=== PATIENT | female | born 1975 | race Caucasian/White ===

== ENCOUNTER 2018-07-31 16:46 | Emergency (ER) | payer SELFPAY ==
[~2018-07-31] VITALS: Ht 157.5 cm; Wt 120.2 kg
[2018-07-31] MEDS ORDERED: NS IV 1000 ML 1,000 ML IV STA (17:09)
[2018-07-31] MEDS ORDERED: morphine INJ 10 MG/ML 1ML (SYR OR VIAL) IVP STA (17:09)
[2018-07-31] MEDS ORDERED: ONDANSETRON 4 MG/2 ML (SDV) Z0FRAN IVP ONE (17:15)
--- NOTE | 2018-07-31 17:24 | ED Abdominal Pain ---
General Chief Complaint: Abdominal/GI Problems Stated Complaint: ABD PAIN Nursing Triage Note: Patient reports she has had bilateral lower quadrant abdominal pain for 8-9 days. States she was seen by her PCP in [place] and tentatively diagnosed with kidney stones. She then left to go on a 7 day cruise, states her pain has worsened and moved to her RLQ, reports nausea and vomiting for 3 days. She states she initially had diarrhea, now some mild constipation. Sepsis Screen: No Definite Risk (MONISHA KING MD) History of Present Illness Date Seen by Provider: Jul 31, 2018 Time Seen by Provider: 17:00 Initial Comments The patient is a 43-year-old female with a history of chronic left shoulder pain on hydrocodone and tizanidine, as well as prior nephrolithiasis, and with a surgical history of prior cholecystectomy and total hysterectomy. She presents with concern for acute onset of right lower quadrant > suprapubic abdominal discomfort with onset over the past 3 days. Pain is sharp and constant and rather severe and the patient appears to be in some discomfort upon initial evaluation. Pain is nonradiating and it is better with rest and worse with ambulation. Associated nausea with 3 episodes of nonbloody emesis over the last 3 days. Associated mild constipation with bowel movements which are small and hard over the last 3 days. Subjective fevers at home yesterday although is afebrile here. Symptoms occur in the setting of nearly 2 weeks of what is described as left lower quadrant abdominal pain which was more mild and intermittent in character. Patient saw her primary care physician for this issue 2 weeks ago and was evidently diagnosed with a urinary tract infection and placed on Keflex. She then went on a cruise to the [facility] and states that she was having loose bowel movements for most of the cruise in the setting of Keflex utilization. She states she mostly ate food that was provided on the cruise ship and did not really eat local cuisine at the [place] call she visited. She states that over the last 3 days she has been taking her home hydrocodone every day for relief of her right lower quadrant abdominal pain. No associated hematemesis, hematochezia, melena, cough, shortness of breath or chest pain, upper abdominal pain, flank pain, back pain, dysuria or hematuria, unusual vaginal discharge or bleeding. (MONISHA KING MD) Allergies and Home Medications Allergies Coded Allergies: Penicillins (Verified Allergy, Unknown, 07/31/18) ketorolac (Verified Allergy, Unknown, 07/31/18) Uncoded Allergies: IV CONTRAST DYE (Allergy, Unknown, 07/31/18) Home Medications Hydromorphone HCl 2 Mg Tablet, 2 MG PO TID PRN for PAIN-SEVERE Abdominal pain Prescribed by: AURELIA PEOPLESRT on 07/31/182224 Promethazine HCl 25 Mg Tablet, 25 MG PO Q6H PRN for NAUSEA/VOMITING Prescribed by: AURELIA RANDHAWA on 07/31/182224 Patient Home Medication List Home Medication List Reviewed: Yes (MONISHA KING MD) Review of Systems Review of Systems Constitutional: see HPI (MONISHA KING MD) All Other Systems Reviewed Negative Unless Noted: Yes (MONISHA KING MD) Past Injfngp-Qwofkr-Wajcio Hx Past Med/Social Hx: Reviewed Nursing Past Med/Soc Hx (MONISHA KING MD) Patient Social History Recent Foreign Travel: Yes (recently on a cruise in the [place]) Contact w/Someone Who Travel: Yes Recent Infectious Disease Expo: No (MONISHA KING MD) Past Medical History BI ARCHITECT History: Hysterectomy (MONISHA KING MD) Family Medical History Reviewed Nursing Family Hx (MONISHA KING MD) Physical Exam Vital Signs Vital Signs - First Documented 07/31/18 17:00 Temp 98.4 Pulse 88 Resp 20 B/P (MAP) 161/93 (115) Pulse Ox 98 O2 Delivery Room Air (AURELIA RANDHAWA MD) Vital Signs Capillary Refill : Less Than 3 Seconds (MONISHA KING MD) Height/Weight/BMI Height: 5'2.00" Weight: 265lbs. oz. 120.783343yq; BMI Method:Stated General Appearance: no apparent distress Exam Comments This is a middle-aged female appearing nontoxic and in no acute distress. Head is normocephalic and atraumatic. Neck is supple and nontender. Oropharynx is mildly tacky. Lungs are clear to auscultation at all stations. There is a normal S1 and S2 without rubs or gallops and capillary refills dylan ropriate, less 2 seconds globally. Abdomen is soft and nondistended and with mild tenderness to palpation over the right lower quadrant and less so over the suprapubic region without rebound or guarding. Skin is warm and dry without cyanosis, clubbing or edema. Psychiatrically, the patient demonstrates appropriate mood and affect and is alert. (MONISHA KING MD) Progress/Results/Core Measures Results/Orders Lab Results Laboratory Tests Test 07/31/18 17:32 07/31/18 18:00 Range/Units White Blood Count 5.9 4.3-11.0 10^3/uL Red Blood Count 4.77 4.35-5.85 10^6/uL Hemoglobin 14.0 11.5-16.0 G/DL Hematocrit 42 35-52 % Mean Corpuscular Volume 89 80-99 FL Mean Corpuscular Hemoglobin 29 25-34 PG Mean Corpuscular Hemoglobin Concent 33 32-36 G/DL Red Cell Distribution Width 13.7 10.0-14.5 % Platelet Count 128 L 130-400 10^3/uL Mean Platelet Volume 11.1 H 7.4-10.4 FL Neutrophils (%) (Auto) 55 42-75 % Lymphocytes (%) (Auto) 37 12-44 % Monocytes (%) (Auto) 6 0-12 % Eosinophils (%) (Auto) 2 0-10 % Basophils (%) (Auto) 0 0-10 % Neutrophils # (Auto) 3.3 1.8-7.8 X 10^3 Lymphocytes # (Auto) 2.2 1.0-4.0 X 10^3 Monocytes # (Auto) 0.4 0.0-1.0 X 10^3 Eosinophils # (Auto) 0.1 0.0-0.3 10^3/uL Basophils # (Auto) 0.0 0.0-0.1 10^3/uL Sodium Level 141 135-145 MMOL/L Potassium Level 4.0 3.6-5.0 MMOL/L Chloride Level 104 98-107 MMOL/L Carbon Dioxide Level 28 21-32 MMOL/L Anion Gap 9 5-14 MMOL/L Blood Urea Nitrogen 10 7-18 MG/DL Creatinine 0.64 0.60-1.30 MG/DL Estimat Glomerular Filtration Rate > 60 BUN/Creatinine Ratio 16 Glucose Level 170 H 70-105 MG/DL Calcium Level 9.2 8.5-10.1 MG/DL Corrected Calcium 9.5 8.5-10.1 MG/DL Total Bilirubin 0.7 0.1-1.0 MG/DL Aspartate Amino Transf (AST/SGOT) 74 H 5-34 U/L Alanine Aminotransferase (ALT/SGPT) 65 H 0-55 U/L Alkaline Phosphatase 130 40-136 U/L Total Protein 7.0 6.4-8.2 GM/DL Albumin 3.6 3.2-4.5 GM/DL Lipase 34 8-78 U/L Urine Color YELLOW Urine Clarity CLEAR Urine pH 7.0 5-9 Urine Specific [place] 1.015 L 1.016-1.022 Urine Protein NEGATIVE NEGATIVE Urine Glucose (UA) NEGATIVE NEGATIVE Urine Ketones NEGATIVE NEGATIVE Urine Nitrite NEGATIVE NEGATIVE Urine Bilirubin NEGATIVE NEGATIVE Urine Urobilinogen 1.0 NORMAL MG/DL Urine Leukocyte Esterase NEGATIVE NEGATIVE Urine RBC (Auto) NEGATIVE NEGATIVE Urine RBC NONE /HPF Urine WBC 0-2 /HPF Urine Squamous Epithelial Cells 5-10 /HPF Urine Crystals NONE /LPF Urine Bacteria TRACE /HPF Urine Casts NONE /LPF Urine Mucus NONE /LPF Urine Trichomonas /HPF Urine Culture Indicated NO (AURELIA RANDHAWA MD) My Orders Orders - AURELIA RANDHAWA MD Hydromorphone Injection (Dilaudid Inject (07/31/18 20:43) Promethazine Injection (Phenergan Injec (07/31/18 20:43) (AURELIA RANDHAWA MD) Medications Given in ED Current Medications Medications Dose Ordered Sig/Karl Route Start Time Stop Time Status Last Admin Dose Admin Diphenhydramine HCl 50 mg ONCE ONCE IVP 07/31/18 18:00 07/31/18 18:01 DC 07/31/18 18:05 50 MG Hydromorphone HCl 1 mg ONCE ONCE IV 07/31/18 18:15 07/31/18 18:16 DC 07/31/18 18:29 1 MG Iohexol 100 ml ONCE ONCE IV 07/31/18 17:30 07/31/18 17:31 DC 07/31/18 19:02 100 ML Methylprednisolone Sodium Succinate 125 mg ONCE ONCE IM 07/31/18 18:00 07/31/18 18:01 DC 07/31/18 18:05 125 MG Ondansetron HCl 4 mg ONCE ONCE IVP 07/31/18 17:15 07/31/18 17:16 DC 07/31/18 17:31 4 MG Sodium Chloride 10 ml NEEDED PRN IV 07/31/18 17:30 07/31/18 22:38 DC 07/31/18 19:04 10 ML Sodium Chloride 100 ml ONCE ONCE IV 07/31/18 17:30 07/31/18 17:31 DC 07/31/18 19:02 100 ML (AURELIA RANDHAWA MD) Vital Signs/I&O 07/31/18 07/31/18 17:00 22:32 Temp 98.4 98.2 Pulse 88 88 Resp 20 18 B/P (MAP) 161/93 (115) 145/61 (89) Pulse Ox 98 99 O2 Delivery Room Air Room Air 08/01/18 00:00 Intake Total 1000 ml Balance 1000 ml (AURELIA RANDHAWA MD) Blood Pressure Mean: 115 Progress Progress Note : Time: 17:25 Progress Note 43-year-old female who presents with 2 weeks of lower quadrant abdominal pain, initially left sided and with some reported evidence of urinary tract infection per testing completed at her physician's office and previously placed on Keflex, then with diarrhea while traveling outside the country and on Keflex, and now with constipation and right lower quadrant abdominal pain after initiating her home hydrocodone daily for her belly pain. There are some red flags for bacterial enteritis so we will attempt to obtain a stool sample so that stool studies can be sent. We will check labs, urinalysis and urine culture if appropriate, give IV fluids and obtain a contrasted CT scan of the abdomen and pelvis. We will then reevaluate. (MONISHA KING MD) Progress Note #1: Progress Note I assumed care of the patient from dr. King at shift change. Pt was waiting on CT results. Labs all looked ok and urine clear without signs of infection. Progress Note #2: Time: 19:44 Progress Note Patient's had already received several doses of pain medicine including Dilaudid. She was requesting something more for pain. Her CT scan had come back finally stating that there was nothing acute today For her pain symptoms. On my review of her CT she had mild increase in gas and stool. There is no definite signs of appendicitis. She had no inflammatory changes. Will see about trying Bentyl for pain and cramping and have her follow-up through the clinic. Will add in laxative for constipation. Progress Note #3: Progress Note When reviewing the results with the patient and discussing Ventolin other options she is became tearful and so the Bentyl has not helped with her pain in the past. She also was having a lot of nausea. Will try a dose of Phenergan instead for nausea. Will repeat a dose of Dilaudid for her pain. We will discuss with the on-call surgeon to see about the recommendation and if she might qualify for admit. When discussed with Dr. Morgan he advised that if we can control her pain to discharge her on oral pain medication and have her call the clinic and he would help see her and see about setting her up for a colonoscopy. Since the patient states that she is concerned about possible ulcerative colitis or Crohn's she would need a scope to help control that out. In the meantime we will try treating her pain with Dilaudid and nausea with Phenergan. Counseled on follow- up and return precautions if she gets worse. (AURELIA RANDHAWA MD) Diagnostic Imaging Diagonstic Imaging: CT Plain Films/CT/US/NM/MRI: abdomen, pelvis Comments NAME: [facility] REC#: [id number] PT STATUS: REG ER : 1975 PHYSICIAN: MONISHA KING MD ADMIT DATE: 07/31/18/ER FS Draft Date of Exam:07/31/18 CT ABDOMEN/PELVIS W PROCEDURE: CT abdomen and pelvis with contrast. TECHNIQUE: Multiple contiguous axial images were obtained through the abdomen and pelvis after administration of intravenous contrast. Auto Exposure Controls were utilized during the CT exam to meet ALARA standards for radiation dose reduction. INDICATION: Abdominal pain with nausea and vomiting. Diarrhea. FINDINGS: The lung bases are clear. The liver appears normal. Gallbladder is absent. Bile ducts and pancreas are normal. The spleen is normal. The adrenal glands are normal. The kidneys appear normal. There is normal enhancement of the abdominal organs and vessels following IV contrast. Vessels appear normal. The appendix is visualized and normal. Small bowel is not dilated. No evidence of small bowel wall thickening. The colon shows normal stool and gas pattern. No evidence of constipation. There are no focal changes to indicate diverticulitis. No bowel wall thickening to suggest colitis. There is a question of asymmetrical thickening along the rectal wall on the left. This may be due to peristaltic change though a rectal mass could not be excluded from this exam. Pararectal tissues appear normal without evidence of adenopathy. Uterus is absent. Bladder normal. No bony abnormalities. IMPRESSION: 1. There are no acute abnormalities demonstrated. 2. Question of possible thickening of the rectal wall mid level laterally on the left. This may be due to peristaltic change. Clinical correlation. Dictated on workstation # [id number] Dict: 07/31/181941 Trans: 07/31/181947 [facility] [id number] Interpreted by: MITZI DEITZ MD Electronically signed by: (AURELIA RANDHAWA MD) Departure Impression Primary Impression: Right lower quadrant abdominal pain Additional Impression: Nausea and vomiting Qualified Codes: R11.14 - Bilious vomiting Disposition: 01 HOME, SELF-CARE Condition: Stable Departure-Patient Inst. Decision time for Depature: 22:19 (AURELIA RANDHAWA MD) Referrals: SEAN MORGAN MD Patient Instructions: Acute Abdomen (Belly Pain), Adult (DC), Nausea and Vomiting, Adult (DC) Add. Discharge Instructions: Check with Dr. Morgan with surgery at [facility] about setting up a Colonoscopy. his office number is [phone]. Try the Dilaudid (Hydromorphone) pain medicine instead of Hydrocodone and Phenergan for nausea. Try a liquid diet for the next 2-3 days and take a laxative to prevent Constipation while taking narcotic pain medicine. All discharge instructions reviewed with patient and/or family. Voiced understanding. Scripts Promethazine HCl (Promethazine Tablet) 25 Mg Tablet 25 MG PO Q6H PRN for NAUSEA/VOMITING for 5 Days, #20 TAB 0 Refills Prov: AURELIA RANDHAWA MD 07/31/18 Hydromorphone HCl (Dilaudid) 2 Mg Tablet 2 MG PO TID PRN for PAIN-SEVERE for 7 Days, #21 TAB 0 Refills Abdominal pain Prov: AURELIA RANDHAWA MD 07/31/18 Work/School Note: Work Release Form Date Seen in the Emergency Department: Jul 31, 2018 Return to Work: Aug 03, 2018 Restrictions: No Restrictions MONISHA KING MD Jul 31, 2018 17:23 AURELIA RANDHAWA MD Jul 31, 2018 19:53
[2018-07-31] MEDS ORDERED: HOLD METFORMIN - RECEIVED CONTRAST 20 ML VIAL IV SCH (17:30)
[2018-07-31] MEDS ORDERED: NS 100 ML (IVPB) BAG IV ONE (17:30)
[2018-07-31] MEDS ORDERED: CATHETER FLUSH 10 ML SYR IV PRN (17:30)
[2018-07-31] MEDS ORDERED: IOHEXOL 350 MG/ML 100 ML (OMNIPAQUE 350) VIAL IV ONE (17:30)
[2018-07-31 17:38] LABS: WHITE BLOOD COUNT 5.9 10^3/uL (4.3-11.0)
[2018-07-31 17:39] LABS: BASOPHILS % (AUTO) 0 % (0-10); EOSINOPHILS # (AUTO) 0.1 10^3/uL (0.0-0.3); EOSINOPHILS % (AUTO) 2 % (0-10); HEMATOCRIT 42 % (35-52); LYMPHOCYTES # (AUTO) 2.2 X 10^3 (1.0-4.0); LYMPHOCYTES % (AUTO) 37 % (12-44); MEAN CORPUSCULAR HEMOGLOBIN 29 PG (25-34); MEAN CORPUSCULAR HGB CONC 33 G/DL (32-36); MEAN CORPUSCULAR VOLUME 89 FL (80-99); MEAN PLATELET VOLUME 11.1 FL (7.4-10.4); MONOCYTES # (AUTO) 0.4 X 10^3 (0.0-1.0); MONOCYTES % (AUTO) 6 % (0-12); NEUTROPHILS # (AUTO) 3.3 X 10^3 (1.8-7.8); NEUTROPHILS % (AUTO) 55 % (42-75); PLATELET COUNT 128 10^3/uL (130-400); RED CELL DISTRIBUTION WIDTH 13.7 % (10.0-14.5)
[2018-07-31] MEDS ORDERED: methylPREDNISolone 125 MG (Solu-MEDROL) VIAL IM ONE (18:00)
[2018-07-31] MEDS ORDERED: diphenhydrAMINE 50 MG/ML INJ (BENADRYL) IVP ONE ×2 (18:00)
[2018-07-31 18:10] LABS: ALANINE AMINOTRANSFERASE 65 U/L (0-55); ALBUMIN 3.6 GM/DL (3.2-4.5); ALKALINE PHOSPHATASE 130 U/L (40-136); BILIRUBIN,TOTAL 0.7 MG/DL (0.1-1.0); BUN/CREATININE RATIO 16; CALCIUM 9.2 MG/DL (8.5-10.1); CARBON DIOXIDE 28 MMOL/L (21-32); CHLORIDE 104 MMOL/L (98-107); CREATININE SERUM 0.64 MG/DL (0.60-1.30); GFR ESTIMATED > 60; GLUCOSE 170 MG/DL (70-105); SODIUM 141 MMOL/L (135-145)
[2018-07-31 18:11] LABS: LIPASE 34 U/L (8-78)
[2018-07-31 18:14] LABS: COLOR,URINE YELLOW
[2018-07-31 18:15] LABS: BACTERIA,URINE TRACE /HPF; BILIRUBIN,URINE NEGATIVE (NEGATIVE); CLARITY,URINE CLEAR; GLUCOSE, URINE (UA) NEGATIVE (NEGATIVE); KETONES,URINE NEGATIVE (NEGATIVE); LEUKOCYTE ESTERASE ,URINE NEGATIVE (NEGATIVE); NITRITE,URINE NEGATIVE (NEGATIVE); PROTEIN,URINE NEGATIVE (NEGATIVE); WBC,URINE 0-2 /HPF
[2018-07-31] MEDS ORDERED: HYDROmorphone 2 MG/ML VIAL (DILAUDID) IV ONE (18:15)
--- NOTE | 2018-07-31 19:48 | Diagnostic Imaging Report ---
PROCEDURE: CT abdomen and pelvis with contrast. TECHNIQUE: Multiple contiguous axial images were obtained through the abdomen and pelvis after administration of intravenous contrast. Auto Exposure Controls were utilized during the CT exam to meet ALARA standards for radiation dose reduction. INDICATION: Abdominal pain with nausea and vomiting. Diarrhea. FINDINGS: The lung bases are clear. The liver appears normal. Gallbladder is absent. Bile ducts and pancreas are normal. The spleen is normal. The adrenal glands are normal. The kidneys appear normal. There is normal enhancement of the abdominal organs and vessels following IV contrast. Vessels appear normal. The appendix is visualized and normal. Small bowel is not dilated. No evidence of small bowel wall thickening. The colon shows normal stool and gas pattern. No evidence of constipation. There are no focal changes to indicate diverticulitis. No bowel wall thickening to suggest colitis. There is a question of asymmetrical thickening along the rectal wall on the left. This may be due to peristaltic change though a rectal mass could not be excluded from this exam. Pararectal tissues appear normal without evidence of adenopathy. Uterus is absent. Bladder normal. No bony abnormalities. IMPRESSION: 1. There are no acute abnormalities demonstrated. 2. Question of possible thickening of the rectal wall mid level laterally on the left. This may be due to peristaltic change. Clinical correlation. Dictated by: Dictated on workstation # [id number]
[2018-07-31] MEDS ORDERED: PROMETHAZINE INJ 25 MG/ML (PHENERGAN) AMP IVP STA (20:43)
[2018-07-31] MEDS ORDERED: HYDROmorphone 2 MG/ML VIAL (DILAUDID) IV STA (20:43)
[2018-07-31] MEDS ORDERED: PROM25TA14 PO (22:25)
[2018-07-31] MEDS ORDERED: HYDR2TAB30 PO (22:25)
[2018-07-31 22:32] VITALS: BP 145/61
== END 2018-07-31 22:32 | disposition home or self-care (01) ==
LOC: ER FS 16:49
DX: R10.31 Right lower quadrant pain (principal); R11.2 Nausea with vomiting, unspecified; Z90.49 Acquired absence of other specified parts of digestive tract; Z90.710 Acquired absence of both cervix and uterus; Z88.0 Allergy status to penicillin; Z88.4 Allergy status to anesthetic agent; Z91.041 Radiographic dye allergy status
CPT/HCPCS: 36415; 74177; 80053; 81000; 83690; 85025; 96361; 96372; 96374; 96375; 96376

== ENCOUNTER 2018-08-30 17:44 | Emergency (ER) | payer BC, OTHER ==
[~2018-08-30] VITALS: Ht 160 cm; Wt 117.9 kg
[~2018-08-30 17:44] MED LIST: HYDR2TAB30 PO; PROM25TA14 PO
--- NOTE | 2018-08-30 18:07 | ED Chest Pain ---
General Stated Complaint: CHEST PAIN, SOB, RT LEG SWELLING Source: patient, RN notes reviewed, old records Exam Limitations: no limitations History of Present Illness Date Seen by Provider: Aug 30, 2018 Time Seen by Provider: 18:07 Allergies and Home Medications Allergies Coded Allergies: Penicillins (Verified Allergy, Unknown, 07/31/18) ketorolac (Verified Allergy, Unknown, 07/31/18) Uncoded Allergies: IV CONTRAST DYE (Allergy, Unknown, 07/31/18) Home Medications Hydromorphone HCl 2 Mg Tablet, 2 MG PO TID PRN for PAIN-SEVERE Abdominal pain Prescribed by: AURELIA Martinez ENKEVINRT on 07/31/182224 Promethazine HCl 25 Mg Tablet, 25 MG PO Q6H PRN for NAUSEA/VOMITING Prescribed by: AURELIA Martinez ENYART on 07/31/182224 Past Dvfoepj-Ehygxy-Ncktzz Hx Patient Social History 2nd Hand Smoke Exposure: No Recent Foreign Travel: No Contact w/Someone Who Travel: No Recent Hopitalizations: No Seasonal Allergies Seasonal Allergies: No Past Medical History Surgeries: Yes Section, Gallbladder, Hysterectomy Respiratory: No Cardiac: No 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 oz. 120.862844ev; BMI Method:Stated Progress/Results/Core Measures Results/Orders Lab Results Laboratory Tests Test 08/30/18 18:12 08/30/18 20:20 Range/Units White Blood Count 7.6 4.3-11.0 10^3/uL Red Blood Count 4.89 4.35-5.85 10^6/uL Hemoglobin 14.3 11.5-16.0 G/DL Hematocrit 44 35-52 % Mean Corpuscular Volume 89 80-99 FL Mean Corpuscular Hemoglobin 29 25-34 PG Mean Corpuscular Hemoglobin Concent 33 32-36 G/DL Red Cell Distribution Width 13.2 10.0-14.5 % Platelet Count 126 L 130-400 10^3/uL Mean Platelet Volume 11.6 H 7.4-10.4 FL Neutrophils (%) (Auto) 57 42-75 % Lymphocytes (%) (Auto) 34 12-44 % Monocytes (%) (Auto) 7 0-12 % Eosinophils (%) (Auto) 1 0-10 % Basophils (%) (Auto) 0 0-10 % Neutrophils # (Auto) 4.3 1.8-7.8 X 10^3 Lymphocytes # (Auto) 2.5 1.0-4.0 X 10^3 Monocytes # (Auto) 0.6 0.0-1.0 X 10^3 Eosinophils # (Auto) 0.1 0.0-0.3 10^3/uL Basophils # (Auto) 0.0 0.0-0.1 10^3/uL Prothrombin Time 13.0 12.2-14.7 SEC INR Comment 0.9 0.8-1.4 Activated Partial Thromboplast Time 27 24-35 SEC D-Dimer 0.19 0.00-0.49 UG/ML Sodium Level 140 135-145 MMOL/L Potassium Level 4.1 3.6-5.0 MMOL/L Chloride Level 100 98-107 MMOL/L Carbon Dioxide Level 27 21-32 MMOL/L Anion Gap 13 5-14 MMOL/L Blood Urea Nitrogen 11 7-18 MG/DL Creatinine 0.68 0.60-1.30 MG/DL Estimat Glomerular Filtration Rate > 60 BUN/Creatinine Ratio 16 Glucose Level 178 H 70-105 MG/DL Calcium Level 9.1 8.5-10.1 MG/DL Corrected Calcium 9.5 8.5-10.1 MG/DL Magnesium Level 1.8 1.8-2.4 MG/DL Total Bilirubin 1.2 H 0.1-1.0 MG/DL Aspartate Amino Transf (AST/SGOT) 106 H 5-34 U/L Alanine Aminotransferase (ALT/SGPT) 88 H 0-55 U/L Alkaline Phosphatase 142 H 40-136 U/L Troponin I < 0.30 <0.30 NG/ML Pro-B-Type Natriuretic Peptide 20.5 <75.0 PG/ML Total Protein 6.8 6.4-8.2 GM/DL Albumin 3.5 3.2-4.5 GM/DL Lipase 93 H 8-78 U/L Urine Color YELLOW Urine Clarity CLEAR Urine pH 6.0 5-9 Urine Specific [place] 1.025 H 1.016-1.022 Urine Protein NEGATIVE NEGATIVE Urine Glucose (UA) 2+ H NEGATIVE Urine Ketones NEGATIVE NEGATIVE Urine Nitrite NEGATIVE NEGATIVE Urine Bilirubin NEGATIVE NEGATIVE Urine Urobilinogen 1.0 NORMAL MG/DL Urine Leukocyte Esterase NEGATIVE NEGATIVE Urine RBC (Auto) NEGATIVE NEGATIVE Urine RBC NONE /HPF Urine WBC NONE /HPF Urine Squamous Epithelial Cells 10-25 H /HPF Urine Crystals NONE /LPF Urine Bacteria MODERATE H /HPF Urine Casts NONE /LPF Urine Mucus MODERATE H /LPF Urine Culture Indicated NO My Orders Orders - LAINEY CARMICHAEL DO Ed Iv/Invasive Line Start (08/30/18 18:07) Ekg Tracing (08/30/18 18:07) Cbc With Automated Diff (08/30/18 18:07) Comprehensive Metabolic Panel (08/30/18 18:07) Fibrin Degradation Products (08/30/18 18:07) Lipase (08/30/18 18:07) Magnesium (08/30/18 18:07) Protime With Inr (08/30/18 18:07) Partial Thromboplastin Time (08/30/18 18:07) Troponin I (08/30/18 18:07) Ua Culture If Indicated (08/30/18 18:07) Probnp Fs (08/30/18 18:07) Chest 1 View Ap/Pa Only (08/30/18 18:12) Ct Abdomen/Pelvis Wo (08/30/18 19:55) Vital Signs/I&O 08/30/18 08/30/18 17:53 17:53 Temp 97.8 Pulse 77 Resp 18 B/P (MAP) 131/44 (73) Pulse Ox 97 O2 Delivery Room Air Room Air Initial ECG Impression Date: Aug 30, 2018 Initial ECG Impression Time: 18:02 Initial ECG Rate: 78 Initial ECG Rhythm: Normal Sinus Initial ECG Intervals: QT (borderline prolonged) Initial ECG Impression: Normal Initial ECG Comparisson: No Previous ECG Available Diagnostic Imaging Diagonstic Imaging: Xray Plain Films/CT/US/NM/MRI: chest (nothing acute) Departure Impression Primary Impression: Non-cardiac chest pain Additional Impressions: Acute pain of right lower extremity Anxiety Disposition: 01 HOME, SELF-CARE Condition: Stable Departure-Patient Inst. Decision time for Depature: 20:55 Referrals: EVELIA DAVIES (PCP) Primary Care Physician Patient Instructions: Chest Pain That Is Not Caused by the Heart (DC), Phlebitis (DC) Add. Discharge Instructions: CALL YOUR PCP IN THE AM, 08/31, TO HAVE HER GET YOU SET UP FOR AN ULTRASOUND OF YOUR RIGHT LEG. ALSO NEED TO SCHEDULE FOLLOW APPOINTMENT TO RECHECK YOUR LIVER ENZYMES AND FOLLOW UP ON YOUR ELEVATED BLOOD SUGAR. RECOMMEND 400 mg OF IBUPROFEN EVERY 6 HOURS FOR YOUR LEG PAIN IN THE MEAN TIME. LAINEY CARMICHAEL DO Aug 30, 2018 18:07
--- NOTE | 2018-08-30 18:31 | Diagnostic Imaging Report ---
INDICATION: Right leg swelling and shortness of air. Time of exam 6:06 PM No prior studies are available for comparison. The heart size is normal. The pulmonary vascularity is unremarkable. The lungs are clear. No infiltrate, effusion or pneumothorax is detected. Impression: No acute cardiopulmonary process is detected. Dictated by: Dictated on workstation # [id number]
[2018-08-30 18:46] LABS: WHITE BLOOD COUNT 7.6 10^3/uL (4.3-11.0)
[2018-08-30 18:47] LABS: BASOPHILS % (AUTO) 0 % (0-10); EOSINOPHILS # (AUTO) 0.1 10^3/uL (0.0-0.3); EOSINOPHILS % (AUTO) 1 % (0-10); HEMATOCRIT 44 % (35-52); HEMOGLOBIN 14.3 G/DL (11.5-16.0); LYMPHOCYTES # (AUTO) 2.5 X 10^3 (1.0-4.0); LYMPHOCYTES % (AUTO) 34 % (12-44); MEAN CORPUSCULAR HEMOGLOBIN 29 PG (25-34); MEAN CORPUSCULAR HGB CONC 33 G/DL (32-36); MEAN CORPUSCULAR VOLUME 89 FL (80-99); MEAN PLATELET VOLUME 11.6 FL (7.4-10.4); MONOCYTES # (AUTO) 0.6 X 10^3 (0.0-1.0); MONOCYTES % (AUTO) 7 % (0-12); NEUTROPHILS # (AUTO) 4.3 X 10^3 (1.8-7.8); NEUTROPHILS % (AUTO) 57 % (42-75); PLATELET COUNT 126 10^3/uL (130-400); RED CELL DISTRIBUTION WIDTH 13.2 % (10.0-14.5)
[2018-08-30 18:52] LABS: FIBRIN DEGRADATION PRODUCTS 0.19 UG/ML (0.00-0.49); INR 0.9 (0.8-1.4)
[2018-08-30 18:54] LABS: ALANINE AMINOTRANSFERASE 88 U/L (0-55); ALKALINE PHOSPHATASE 142 U/L (40-136); BILIRUBIN,TOTAL 1.2 MG/DL (0.1-1.0); BUN/CREATININE RATIO 16; CALCIUM 9.1 MG/DL (8.5-10.1); CARBON DIOXIDE 27 MMOL/L (21-32); CHLORIDE 100 MMOL/L (98-107); CREATININE SERUM 0.68 MG/DL (0.60-1.30); GFR ESTIMATED > 60; GLUCOSE 178 MG/DL (70-105); MAGNESIUM 1.8 MG/DL (1.8-2.4); POTASSIUM 4.1 MMOL/L (3.6-5.0); SODIUM 140 MMOL/L (135-145)
[2018-08-30 18:55] LABS: ALBUMIN 3.5 GM/DL (3.2-4.5); TOTAL PROTEIN 6.8 GM/DL (6.4-8.2)
--- OUTSIDE RECORDS SUMMARY | 2018-08-30 19:40 | XMS REPORT | Continuity of Care Document ---
Author Organization Unknown Address Unknown Allergies There is no data. Medications There is no data. Problems There is no data. Procedures There is no data. Results Test Result Range CULTURE, URINE - 07/19/18 09:18 CULTURE, URINE, ROUTINE NRG Encounters ACCT No. Visit Date/Time Discharge Status Pt. Type Provider Facility Loc./Unit Complaint [id number] 07/19/2018 07:20:00 07/19/2018 23:59:59 [facility] Outpatient CHANCE LYON LAC [id number] 07/19/2018 07:20:00 Document Registration
[2018-08-30 19:47] LABS: LIPASE 93 U/L (8-78)
--- NOTE | 2018-08-30 20:27 | Diagnostic Imaging Report ---
PROCEDURE: CT abdomen and pelvis without contrast. TECHNIQUE: Multiple contiguous axial images were obtained through the abdomen and pelvis without the use of intravenous contrast. Auto Exposure Controls were utilized during the CT exam to meet ALARA standards for radiation dose reduction. INDICATION: Right leg pain. Comparison is made with prior CT from 07/31/2018. The lung bases are clear. No discrete liver mass is detected. The gallbladder is surgically absent. No biliary duct dilatation is seen. Pancreas and spleen are unremarkable. No adrenal mass is identified. No renal calculi or hydronephrosis is identified. The aorta is nonaneurysmal. The small and large bowel loops are normal caliber. There is no obstruction. Appendix is unremarkable in the right lower quadrant. Bladder is unremarkable. Uterus appears to be absent. There is no ascites. No inflammatory process is seen. No abdominal or pelvic lymphadenopathy is seen. IMPRESSION: No acute abnormality is detected. Dictated by: Dictated on workstation # [id number]
[2018-08-30 20:31] LABS: COLOR,URINE YELLOW
[2018-08-30 20:32] LABS: BACTERIA,URINE MODERATE /HPF; BILIRUBIN,URINE NEGATIVE (NEGATIVE); CLARITY,URINE CLEAR; GLUCOSE, URINE (UA) 2+ (NEGATIVE); KETONES,URINE NEGATIVE (NEGATIVE); LEUKOCYTE ESTERASE ,URINE NEGATIVE (NEGATIVE); NITRITE,URINE NEGATIVE (NEGATIVE); PROTEIN,URINE NEGATIVE (NEGATIVE)
[2018-08-30 21:11] VITALS: BP 139/64
[2018-09-01 15:43] LABS: HEPATITIS C ANTIBODY C Non-Reactive (Non-Reactive)
== END 2018-08-30 21:19 | disposition home or self-care (01) ==
LOC: EDUNIT# 17:44 → ER FS 17:45
DX: F41.9 Anxiety disorder, unspecified (principal); R07.9 Chest pain, unspecified; M79.661 Pain in right lower leg; Z88.0 Allergy status to penicillin; Z88.6 Allergy status to analgesic agent; Z91.041 Radiographic dye allergy status; Z90.710 Acquired absence of both cervix and uterus
CPT/HCPCS: 36415; 71045; 74176; 80053; 80074; 81000; 83036; 83690; 83735; 83880; 84484; 85025; 85379; 85610; 85730

== ENCOUNTER 2018-10-16 01:53 | Emergency (ER) | payer SELFPAY ==
[~2018-10-16] VITALS: Ht 157.5 cm; Wt 117.0 kg
[2018-10-16] MEDS ORDERED: morphine INJ 10 MG/ML 1ML (SYR OR VIAL) IVP STA ×2 (02:08→03:10)
--- NOTE | 2018-10-16 02:10 | ED Abdominal Pain ---
General Chief Complaint: Abdominal/GI Problems Stated Complaint: ABD PAIN History of Present Illness Date Seen by Provider: Oct 16, 2018 Time Seen by Provider: 02:00 Initial Comments Patient is a 43-year-old female who comes to the emergency department today complaining or abdominal pain. Patient has been having pain over the last week but states her pain became more severe and constant over the last 2 days. She does endorse some chronic problems with constipation although she has been having normal bowel movements. Tonight, her pain is periumbilical. She describes it to be severe. She has had some significant nausea but no emesis. No prior history of similar symptoms. Her surgical history is positive for cholecystectomy, hysterectomy, bilateral tubal ligation, and . Denies vaginal symptoms. Denies urinary symptoms. Allergies and Home Medications Allergies Coded Allergies: Penicillins (Verified Allergy, Unknown, 07/31/18) ketorolac (Verified Allergy, Unknown, 07/31/18) Uncoded Allergies: IV CONTRAST DYE (Allergy, Unknown, 07/31/18) Home Medications Docusate Sodium 100 Mg Tablet, 100 MG PO BID Prescribed by: XAVIER CERON on 10/16/18 0349 Hydromorphone HCl 2 Mg Tablet, 2 MG PO TID PRN for PAIN-SEVERE Abdominal pain Prescribed by: AURELIA RANDHAWA on 07/31/18 222 Polyethylene Glycol 3350 17 Gm Powd.pack, 17 GM PO BID Prescribed by: XAVIER CERON on 10/16/18 0349 Promethazine HCl 25 Mg Tablet, 25 MG PO Q6H PRN for NAUSEA/VOMITING Prescribed by: AURELIA RANDHAWA on 07/31/18 222 Patient Home Medication List Home Medication List Reviewed: Yes Review of Systems Review of Systems Constitutional: no symptoms reported EENTM: No Symptoms Reported Cardiovascular: No Symptoms Reported Gastrointestinal: See HPI Genitourinary: No Symptoms Reported Musculoskeletal: no symptoms reported Skin: no symptoms reported Endocrine: No Symptoms Reported All Other Systems Reviewed Negative Unless Noted: Yes Past Sawdhdx-Obsbts-Lneaok Hx Patient Social History 2nd Hand Smoke Exposure: No Recent Hopitalizations: No Seasonal Allergies Seasonal Allergies: No Past Medical History Surgeries: Yes Gallbladder, Hysterectomy, Tubal Ligation Respiratory: No Cardiac: No 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 oz. 117.886333bu; BMI Method:Stated General Appearance: WD/WN, no apparent distress HEENT: PERRL/EOMI, normal ENT inspection, TMs normal Neck: full range of motion Respiratory: lungs clear, normal breath sounds Cardiovascular: regular rate, rhythm, no edema Gastrointestinal: normal bowel sounds, soft, other (subjectively tender during the exam but no guarding or rebound) Extremities: normal range of motion, non-tender Skin: normal color, warm/dry Progress/Results/Core Measures Results/Orders Lab Results Laboratory Tests Test 10/16/18 02:24 10/16/18 03:05 Range/Units White Blood Count 8.4 4.3-11.0 10^3/uL Red Blood Count 4.72 4.35-5.85 10^6/uL Hemoglobin 13.7 11.5-16.0 G/DL Hematocrit 41 35-52 % Mean Corpuscular Volume 88 80-99 FL Mean Corpuscular Hemoglobin 29 25-34 PG Mean Corpuscular Hemoglobin Concent 33 32-36 G/DL Red Cell Distribution Width 13.4 10.0-14.5 % Platelet Count 131 130-400 10^3/uL Mean Platelet Volume 11.6 H 7.4-10.4 FL Neutrophils (%) (Auto) 63 42-75 % Lymphocytes (%) (Auto) 27 12-44 % Monocytes (%) (Auto) 8 0-12 % Eosinophils (%) (Auto) 1 0-10 % Basophils (%) (Auto) 1 0-10 % Neutrophils # (Auto) 5.2 1.8-7.8 X 10^3 Lymphocytes # (Auto) 2.3 1.0-4.0 X 10^3 Monocytes # (Auto) 0.7 0.0-1.0 X 10^3 Eosinophils # (Auto) 0.1 0.0-0.3 10^3/uL Basophils # (Auto) 0.0 0.0-0.1 10^3/uL Neutrophils % (Manual) 59 % Lymphocytes % (Manual) 30 % Monocytes % (Manual) 7 % Eosinophils % (Manual) 1 % Basophils % (Manual) 0 % Band Neutrophils 3 % Blood Morphology Comment NORMAL Sodium Level 140 135-145 MMOL/L Potassium Level 4.1 3.6-5.0 MMOL/L Chloride Level 101 98-107 MMOL/L Carbon Dioxide Level 25 21-32 MMOL/L Anion Gap 14 5-14 MMOL/L Blood Urea Nitrogen 12 7-18 MG/DL Creatinine 0.83 0.60-1.30 MG/DL Estimat Glomerular Filtration Rate > 60 BUN/Creatinine Ratio 14 Glucose Level 180 H 70-105 MG/DL Calcium Level 9.2 8.5-10.1 MG/DL Corrected Calcium 9.5 8.5-10.1 MG/DL Total Bilirubin 0.5 0.1-1.0 MG/DL Aspartate Amino Transf (AST/SGOT) 42 H 5-34 U/L Alanine Aminotransferase (ALT/SGPT) 55 0-55 U/L Alkaline Phosphatase 132 40-136 U/L Total Protein 7.0 6.4-8.2 GM/DL Albumin 3.6 3.2-4.5 GM/DL Lipase 126 H 8-78 U/L Urine Color ASIA H Urine Clarity CLEAR Urine pH 6.0 5-9 Urine Specific [place] 1.020 1.016-1.022 Urine Protein NEGATIVE NEGATIVE Urine Glucose (UA) NEGATIVE NEGATIVE Urine Ketones NEGATIVE NEGATIVE Urine Nitrite NEGATIVE NEGATIVE Urine Bilirubin NEGATIVE NEGATIVE Urine Urobilinogen 0.2 NORMAL MG/DL Urine Leukocyte Esterase NEGATIVE NEGATIVE Urine RBC (Auto) NEGATIVE NEGATIVE Urine RBC NONE /HPF Urine WBC 0-2 /HPF Urine Squamous Epithelial Cells 10-25 H /HPF Urine Crystals NONE /LPF Urine Bacteria TRACE /HPF Urine Casts NONE /LPF Urine Mucus MODERATE H /LPF Urine Culture Indicated NO My Orders Orders - XAVIER CERON DO Urinalysis (10/16/18 02:03) Cbc And Manual Diff (10/16/18 02:03) Comprehensive Metabolic Panel (10/16/18 02:03) Lipase (10/16/18 02:03) Ct Abdomen/Pelvis W (10/16/18 02:03) Methylprednisolone Sod Succ (Solu-Medrol (10/16/18 02:15) Diphenhydramine Injection (Benadryl Inje (10/16/18 02:15) Ondansetron Injection (Zofran Injectio (10/16/18 02:15) Morphine Injection (Morphine Injection (10/16/18 02:08) Ns Iv 1000 Ml (Sodium Chloride 0.9%) (10/16/18 02:30) Iohexol Injection (Omnipaque 350 Mg/Ml 1 (10/16/18 02:30) Ns (Ivpb) (Sodium Chloride 0.9% Ivpb Bag (10/16/18 02:30) Morphine Injection (Morphine Injection (10/16/18 03:10) Ondansetron Injection (Zofran Injectio (10/16/18 03:15) Hydromorphone Injection (Dilaudid Inject (10/16/18 03:45) Medications Given in ED Current Medications Medications Dose Ordered Sig/Karl Route Start Time Stop Time Status Last Admin Dose Admin Diphenhydramine HCl 25 mg ONCE ONCE IM 10/16/18 02:15 10/16/18 02:16 DC 10/16/18 02:26 25 MG Iohexol 100 ml ONCE ONCE IV 10/16/18 02:30 10/16/18 02:32 DC 10/16/18 02:53 100 ML Methylprednisolone Sodium Succinate 80 mg ONCE ONCE IV 10/16/18 02:15 10/16/18 02:16 DC 10/16/18 02:25 80 MG Ondansetron HCl 4 mg ONCE ONCE IVP 10/16/18 02:15 10/16/18 02:16 DC 10/16/18 02:25 4 MG Ondansetron HCl 4 mg ONCE ONCE IVP 10/16/18 03:15 10/16/18 03:16 DC 10/16/18 03:19 4 MG Sodium Chloride 100 ml ONCE ONCE IV 10/16/18 02:30 10/16/18 02:32 DC 10/16/18 02:54 40 ML Vital Signs/I&O 10/16/18 02:03 Temp 98.4 Pulse 92 Resp 18 B/P (MAP) 143/91 (108) Pulse Ox 97 O2 Delivery Room Air Progress Progress Note : Time: 02:16 Progress Note Patient is seen and examined. The patient does seem to have some significant discomfort secondary to pain in her abdomen. Orders are placed for IV, labs, CT scan. Patient has reported allergy to iodine but states she can tolerate diet with pretreatment. Solu-Medrol and Benadryl are ordered. 03:55: All results are reviewed and discussed with the patient. No acute findings on CT scan to explain her abdominal pain. There is a questionable finding of new splenic infarct although the patient does not have pain in the left upper quadrant either subjectively or during examination of the abdomen. Patient is advised to begin taking an aspirin daily and follow up with her primary care physician for further workup or repeat CT scan or MRI to verify this diagnosis. Regarding her presenting complaint today, labs are normal other than mildly elevated glucose level which the patient states she has had previously. No elevation of white blood cell count. Urine does not appear infected. Uncertain cause for her pain but suspect constipation to be the likely source as the patient does use daily opiate pain medications on a chronic basis. She does not normally take any regular bowel regimen medications. In the ER, her pain was difficult to control given her opiate tolerance. She was given 2 doses of morphine followed by 1 dose of Dilaudid. Following that, her pain was much improved. Her nausea was also improved at the time of discharge. She was advised to follow-up with her primary doctor or return to the ER for any new or worsening symptoms. Departure Impression Primary Impression: Abdominal pain Additional Impression: Constipation Disposition: 01 HOME, SELF-CARE Condition: Improved Departure-Patient Inst. Referrals: EVELIA DAVIES (PCP) Primary Care Physician NO,LOCAL PHYSICIAN (Family) Primary Care Physician Scripts Polyethylene Glycol 3350 (Miralax) 17 Gm Powd.pack 17 GM PO BID for constipation, #50 EACH 2 Refills Prov: XAVIER CERON DO 10/16/18 Docusate Sodium (Docusate Sodium) 100 Mg Tablet 100 MG PO BID for constipation, #60 TAB 2 Refills Prov: XAVIER CERON DO 10/16/18 XAVIER CERON DO Oct 16, 2018 02:09
[2018-10-16] MEDS ORDERED: methylPREDNISolone 40 MG/ML (Solu-MEDROL) VIAL IV ONE (02:15)
[2018-10-16] MEDS ORDERED: diphenhydrAMINE 50 MG/ML INJ (BENADRYL) IM ONE (02:15)
[2018-10-16] MEDS ORDERED: ONDANSETRON 4 MG/2 ML (SDV) Z0FRAN IVP ONE ×2 (02:15→03:15)
[2018-10-16] MEDS ORDERED: IOHEXOL 350 MG/ML 100 ML (OMNIPAQUE 350) VIAL IV ONE (02:30)
[2018-10-16] MEDS ORDERED: NS 100 ML (IVPB) BAG IV ONE (02:30)
[2018-10-16] MEDS ORDERED: NS IV 1000 ML 1,000 ML IV SCH (02:30)
[2018-10-16 02:46] LABS: HEMATOCRIT 41 % (35-52); HEMOGLOBIN 13.7 G/DL (11.5-16.0); MEAN CORPUSCULAR HEMOGLOBIN 29 PG (25-34); WHITE BLOOD COUNT 8.4 10^3/uL (4.3-11.0)
[2018-10-16 02:47] LABS: BASOPHILS % (AUTO) 1 % (0-10); EOSINOPHILS # (AUTO) 0.1 10^3/uL (0.0-0.3); EOSINOPHILS % (AUTO) 1 % (0-10); LYMPHOCYTES # (AUTO) 2.3 X 10^3 (1.0-4.0); LYMPHOCYTES % (AUTO) 27 % (12-44); MEAN CORPUSCULAR HGB CONC 33 G/DL (32-36); MEAN CORPUSCULAR VOLUME 88 FL (80-99); MEAN PLATELET VOLUME 11.6 FL (7.4-10.4); MONOCYTES # (AUTO) 0.7 X 10^3 (0.0-1.0); MONOCYTES % (AUTO) 8 % (0-12); NEUTROPHILS # (AUTO) 5.2 X 10^3 (1.8-7.8); NEUTROPHILS % (AUTO) 63 % (42-75); PLATELET COUNT 131 10^3/uL (130-400); RED CELL DISTRIBUTION WIDTH 13.4 % (10.0-14.5)
[2018-10-16 02:48] LABS: BAND NEUTROPHILS 3 %; BASOPHILS % (MANUAL) 0 %; EOSINOPHILS % (MANUAL) 1 %; LYMPHOCYTES % (MANUAL) 30 %; MONOCYTES % (MANUAL) 7 %; NEUTROPHILS % (MANUAL) 59 %; RBC MORPH NORMAL
[2018-10-16 02:54] LABS: BUN/CREATININE RATIO 14; CALCIUM 9.2 MG/DL (8.5-10.1); CARBON DIOXIDE 25 MMOL/L (21-32); CHLORIDE 101 MMOL/L (98-107); CREATININE SERUM 0.83 MG/DL (0.60-1.30); GFR ESTIMATED > 60; GLUCOSE 180 MG/DL (70-105); POTASSIUM 4.1 MMOL/L (3.6-5.0); SODIUM 140 MMOL/L (135-145)
[2018-10-16 02:55] LABS: ALANINE AMINOTRANSFERASE 55 U/L (0-55); ALBUMIN 3.6 GM/DL (3.2-4.5); ALKALINE PHOSPHATASE 132 U/L (40-136); BILIRUBIN,TOTAL 0.5 MG/DL (0.1-1.0); LIPASE 126 U/L (8-78)
[2018-10-16 03:13] LABS: BACTERIA,URINE TRACE /HPF; BILIRUBIN,URINE NEGATIVE (NEGATIVE); CLARITY,URINE CLEAR; COLOR,URINE AMBER; GLUCOSE, URINE (UA) NEGATIVE (NEGATIVE); KETONES,URINE NEGATIVE (NEGATIVE); LEUKOCYTE ESTERASE ,URINE NEGATIVE (NEGATIVE); NITRITE,URINE NEGATIVE (NEGATIVE); PROTEIN,URINE NEGATIVE (NEGATIVE); UROBILINOGEN,URINE 0.2 MG/DL (NORMAL); WBC,URINE 0-2 /HPF
[2018-10-16] MEDS ORDERED: HYDROmorphone 2 MG/ML VIAL (DILAUDID) IV ONE (03:45)
[2018-10-16] MEDS ORDERED: POLY17PO6 PO (03:49)
[2018-10-16] MEDS ORDERED: DOCU100T2 PO (03:49)
[2018-10-16 04:23] VITALS: BP 159/89
--- NOTE | 2018-10-16 06:59 | Diagnostic Imaging Report ---
PROCEDURE: CT abdomen and pelvis with contrast. TECHNIQUE: Multiple contiguous axial images were obtained through the abdomen and pelvis after administration of intravenous contrast. Auto Exposure Controls were utilized during the CT exam to meet ALARA standards for radiation dose reduction. INDICATION: Severe abdominal pain. Exam compared 08/30/2018. FINDINGS: Air-containing appendix visualized and normal. Urinary tracts stable, unobstructed and nonfocal. Gallbladder surgically absent with no pathological distention of bile ducts. The pancreas appeared unremarkable. Some mild heterogeneity of enhancement of the spleen at the lower pole is felt to be incidental. No volume loss, hemorrhage or evidence for splenic rupture. No lymphadenopathy. No mass or fluid collection. No pneumatosis or free air. There was no focal inflammatory process. Vascular structures patent. The abdominal wall intact. The lung bases and osseous structures nonacute. IMPRESSION: Unobstructed urinary tracts. No adnexal lesion. Normal appendix. No inflammatory process, ascites, fluid collection, hemorrhage or acute abnormalities. Dictated by: Dictated on workstation # [id number]
== END 2018-10-16 04:23 | disposition home or self-care (01) ==
LOC: EDUNIT# 01:53 → ER FS 01:54
DX: K59.00 Constipation, unspecified (principal); Z90.49 Acquired absence of other specified parts of digestive tract; Z90.710 Acquired absence of both cervix and uterus; Z98.51 Tubal ligation status; Z88.0 Allergy status to penicillin; Z88.6 Allergy status to analgesic agent; Z91.041 Radiographic dye allergy status
CPT/HCPCS: 36415; 74177; 80053; 81000; 83690; 85007; 85027

== ENCOUNTER 2019-10-20 04:31 | Emergency (ER) | payer SELFPAY ==
[~2019-10-20] VITALS: Ht 160 cm; Wt 105.0 kg
[~2019-10-20 04:31] MED LIST changes: +DOCU100T2 PO; +POLY17PO6 PO
[2019-10-20] MEDS ORDERED: fentaNYL INJECTION 100 MCG/2 ML AMP IVP ONE ×2 (04:45→06:30)
[2019-10-20] MEDS ORDERED: NS IV 1000 ML 1,000 ML IV SCH ×2 (04:45→06:30)
[2019-10-20] MEDS ORDERED: ONDANSETRON 4 MG/2 ML (SDV) Z0FRAN IVP ONE (04:45)
[2019-10-20] MEDS ORDERED: diphenhydrAMINE 50 MG/ML INJ (BENADRYL) IVP ONE ×2 (04:45→06:30)
[2019-10-20] MEDS ORDERED: NS 100 ML (IVPB) BAG IV ONE (05:00)
[2019-10-20] MEDS ORDERED: IOHEXOL 350 MG/ML 100 ML (OMNIPAQUE 350) VIAL IV ONE (05:00)
[2019-10-20] MEDS ORDERED: HOLD METFORMIN - RECEIVED CONTRAST 20 ML VIAL IV SCH (05:00)
--- NOTE | 2019-10-20 05:07 | ED Abdominal Pain ---
General Chief Complaint: Abdominal/GI Problems Stated Complaint: ABD PAIN Nursing Triage Note: Patient states she began experiencing nausea and diarrhea since wednesday that has not improved. She states low pelvic pain as well as right lower quadrant and left flank pain rating at 10/10. Sepsis Screen: No Definite Risk Source of Information: Patient (AURELIA RANDHAWA MD) History of Present Illness Date Seen by Provider: Oct 20, 2019 Time Seen by Provider: 04:32 Initial Comments 44-year-old female presenting with complaints of diffuse abdominal pain worse in the pelvic region. She states this has been going on since WednesdayOctober 13. She has had nausea but no vomiting. She reports having diarrhea this entire time. The pain has been worsening over the last week as well. She states the pain is now 10 out of 10. She did call the clinic 2 days ago and was told to try taking Imodium for the diarrhea and she has been trying hydrocodone for her pain. She denies seeing any blood in her stool or urine. She has had prior kidney stones. She has had some dark colored mucus diarrhea. She has had some subjective fever and chills. She has had a cholecystectomy and hysterectomy in the past. (AURELIA RANDHAWA MD) Allergies and Home Medications Allergies Coded Allergies: Penicillins (Verified Allergy, Unknown, 07/31/18) ketorolac (Verified Allergy, Unknown, 07/31/18) Uncoded Allergies: IV CONTRAST DYE (Allergy, Unknown, 07/31/18) Home Medications Ciprofloxacin HCl 500 Mg Tablet, 500 MG PO BID Prescribed by: VICKY GALVIN on 10/20/19 0655 Docusate Sodium 100 Mg Tablet, 100 MG PO BID Prescribed by: XAVIER CERON on 10/16/18 0349 Hydromorphone HCl 2 Mg Tablet, 2 MG PO TID PRN for PAIN-SEVERE Abdominal pain Prescribed by: AURELIA RANDHAWA on 07/31/18 2225 Hyoscyamine Sulfate 0.125 Mg Tab.subl, 0.125 MG SL Q4H PRN for CRAMPS Prescribed by: VICKY GALVIN on 10/20/19 0655 Metronidazole 500 Mg Tablet, 500 MG PO BID Prescribed by: VICKY GALVIN on 10/20/19 0655 Ondansetron 4 Mg Tab.rapdis, 4 MG PO TID Prescribed by: VICKY GALVIN on 10/20/19 0655 Polyethylene Glycol 3350 17 Gm Powd.pack, 17 GM PO BID Prescribed by: XAVIER CERON on 10/16/18 0349 Promethazine HCl 25 Mg Tablet, 25 MG PO Q6H PRN for NAUSEA/VOMITING Prescribed by: AURELIA RANDHAWA on 07/31/18 3723 Patient Home Medication List Home Medication List Reviewed: Yes (AURELIA RANDHAWA MD) Review of Systems Review of Systems Constitutional: chills, fever (subjective), malaise EENTM: No Symptoms Reported Respiratory: No Symptoms Reported Cardiovascular: No Symptoms Reported Gastrointestinal: See HPI Genitourinary: Denies Burning, Denies Hematuria Musculoskeletal: no symptoms reported Skin: No rash Psychiatric/Neurological: Anxiety Endocrine: No Symptoms Reported (AURELIA RANDHAWA MD) Past Znpqztk-Hdrrgq-Lrlvcl Hx Past Med/Social Hx: Reviewed Nursing Past Med/Soc Hx (AURELIA RANDHAWA MD) Patient Social History Alcohol Use: Denies Use Recreational Drug Use: No Smoking Status: Never a Smoker 2nd Hand Smoke Exposure: No Recent Foreign Travel: No Contact w/Someone Who Travel: No Recent Infectious Disease Expo: No Recent Hopitalizations: No (AURELIA RANDHAWA MD) Seasonal Allergies Seasonal Allergies: No (AURELIA RANDHAWA MD) Past Medical History Surgeries: Yes Abdominal (cholecystectomy and hysterectomy), Section, Gallbladder, Hysterectomy, Tubal Ligation Respiratory: No Cardiac: No 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 oz. 117.963223qg; 41.00 BMI Method:Stated General Appearance: WD/WN, moderate distress, obese HEENT: PERRL/EOMI, pharynx normal Neck: non-tender, full range of motion, supple, normal inspection Respiratory: chest non-tender, lungs clear, normal breath sounds, no respiratory distress, no accessory muscle use Cardiovascular: normal peripheral pulses, regular rate, rhythm, no edema Gastrointestinal: normal bowel sounds, soft, no pulsatile mass; No distended, No guarding, No rebound; tenderness (diffuse but worse in the suprapubic area) Rectal: deferred Extremities: normal range of motion, non-tender, normal inspection, normal capillary refill 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, no motor/sensory deficits, alert, oriented x 3 Skin: normal color, warm/dry (AURELIA RANDHAWA MD) Focused Exam Lactate Level 10/20/19 05:00: Lactic Acid Level 1.09 (VICKY GALVIN DO) Lactic Acid Level Laboratory Tests Test 10/20/19 05:00 Lactic Acid Level 1.09 MMOL/L (0.50-2.00) (VICKY GALVIN DO) Progress/Results/Core Measures Results/Orders Lab Results Laboratory Tests Test 10/20/19 04:36 10/20/19 05:00 Range/Units Urine Color YELLOW Urine Clarity CLEAR Urine pH 6.0 5-9 Urine Specific [place] 1.025 H 1.016-1.022 Urine Protein NEGATIVE NEGATIVE Urine Glucose (UA) 3+ H NEGATIVE Urine Ketones NEGATIVE NEGATIVE Urine Nitrite NEGATIVE NEGATIVE Urine Bilirubin NEGATIVE NEGATIVE Urine Urobilinogen 0.2 < = 1.0 MG/DL Urine Leukocyte Esterase NEGATIVE NEGATIVE Urine RBC (Auto) TRACE-I NEGATIVE Urine RBC NONE /HPF Urine WBC NONE /HPF Urine Squamous Epithelial Cells 10-25 H /HPF Urine Crystals NONE /LPF Urine Bacteria TRACE /HPF Urine Casts NONE /LPF Urine Mucus NEGATIVE /LPF Urine Culture Indicated NO White Blood Count 10.9 4.3-11.0 10^3/uL Red Blood Count 5.16 4.35-5.85 10^6/uL Hemoglobin 14.7 11.5-16.0 G/DL Hematocrit 44 35-52 % Mean Corpuscular Volume 86 80-99 FL Mean Corpuscular Hemoglobin 28 25-34 PG Mean Corpuscular Hemoglobin Concent 33 32-36 G/DL Red Cell Distribution Width 13.3 10.0-14.5 % Platelet Count 154 130-400 10^3/uL Mean Platelet Volume 11.8 H 7.4-10.4 FL Neutrophils (%) (Auto) 59 42-75 % Lymphocytes (%) (Auto) 31 12-44 % Monocytes (%) (Auto) 7 0-12 % Eosinophils (%) (Auto) 3 0-10 % Basophils (%) (Auto) 1 0-10 % Neutrophils # (Auto) 6.4 1.8-7.8 X 10^3 Lymphocytes # (Auto) 3.4 1.0-4.0 X 10^3 Monocytes # (Auto) 0.7 0.0-1.0 X 10^3 Eosinophils # (Auto) 0.3 0.0-0.3 10^3/uL Basophils # (Auto) 0.1 0.0-0.1 10^3/uL Sodium Level 140 135-145 MMOL/L Potassium Level 3.5 L 3.6-5.0 MMOL/L Chloride Level 102 98-107 MMOL/L Carbon Dioxide Level 24 21-32 MMOL/L Anion Gap 14 5-14 MMOL/L Blood Urea Nitrogen 13 7-18 MG/DL Creatinine 0.79 0.60-1.30 MG/DL Estimat Glomerular Filtration Rate > 60 BUN/Creatinine Ratio 16 Glucose Level 108 H 70-105 MG/DL Lactic Acid Level 1.09 0.50-2.00 MMOL/L Calcium Level 9.5 8.5-10.1 MG/DL Corrected Calcium 9.6 8.5-10.1 MG/DL Total Bilirubin 0.5 0.1-1.0 MG/DL Aspartate Amino Transf (AST/SGOT) 37 H 5-34 U/L Alanine Aminotransferase (ALT/SGPT) 40 0-55 U/L Alkaline Phosphatase 129 40-136 U/L Total Protein 7.3 6.4-8.2 GM/DL Albumin 3.9 3.2-4.5 GM/DL Lipase 26 8-78 U/L (ROVENSTINE,VICKY L DO) My Orders Orders - ROVENSTINE,VICKY L DO Methylprednisolone Sod Succ (Solu-Medrol (10/20/19 06:30) Ns Iv 1000 Ml (Sodium Chloride 0.9%) (10/20/19 06:30) Fentanyl Injection (Sublimaze Injection (10/20/19 06:30) Diphenhydramine Injection (Benadryl Inje (10/20/19 06:30) (VICKY GALVIN DO) Medications Given in ED Current Medications Medications Dose Ordered Sig/Karl Route Start Time Stop Time Status Last Admin Dose Admin Diphenhydramine HCl 25 mg ONCE ONCE IVP 10/20/19 04:45 10/20/19 04:47 DC 10/20/19 04:54 25 MG Diphenhydramine HCl 25 mg ONCE ONCE IVP 10/20/19 06:30 10/20/19 06:31 DC 10/20/19 06:29 25 MG Fentanyl Citrate 50 mcg ONCE ONCE IVP 10/20/19 04:45 10/20/19 04:47 DC 10/20/19 04:54 50 MCG Fentanyl Citrate 50 mcg ONCE ONCE IVP 10/20/19 06:30 10/20/19 06:31 DC 10/20/19 06:30 50 MCG Iohexol 100 ml ONCE ONCE IV 10/20/19 05:00 10/20/19 05:01 DC 10/20/19 05:35 100 ML Methylprednisolone Sodium Succinate 80 mg ONCE ONCE IVP 10/20/19 06:30 10/20/19 06:31 DC 10/20/19 06:30 80 MG Ondansetron HCl 4 mg ONCE ONCE IVP 10/20/19 04:45 10/20/19 04:47 DC 10/20/19 04:54 4 MG Sodium Chloride 100 ml ONCE ONCE IV 10/20/19 05:00 10/20/19 05:01 DC 10/20/19 05:36 100 ML (VICKY GALVIN DO) Vital Signs/I&O 10/20/19 10/20/19 04:41 07:25 Temp 37.1 36.9 Pulse 103 79 Resp 18 18 B/P (MAP) 157/73 (101) 104/43 Pulse Ox 98 97 O2 Delivery Room Air Room Air (VICKY GALVIN DO) Blood Pressure Mean: 101 Progress Progress Note #1: Progress Note Obtain basic labs and urinalysis. Ordered a lactic acid with her having the diffuse abdominal pain over the last week but worse in the last few days. Ordered IV fluids for hydration, fentanyl for pain, Zofran for nausea and vomiting. CT scan to evaluate her pain and she states that she can take IV dyes she gets Benadryl beforehand because her reaction is rash and itching, so 25 mg of IV Benadryl was ordered as well. Progress Note #2: Time: 05:43 Progress Note Labs do not show elevated WBC or acute significant abnormality on CBC. Chemistry was stable with normal lactic acid as well. UA had mild elevation of specific gravity to 1.025 and 3+ glucose. awaiting CT scan to see if that shows pathology to indicate a reason for her symptoms and complaints of severe pain. Will pass care to Dr. Galvin at shift change to follow up on result of imaging and disposition of the patient. (AURELIA RANDHAWA MD) Progress Note : Progress Note took over care of pt @ shift change, 0600. HPI discussed w Dr Randhawa, reviewed labs....all normal. Pt had some "itching" in her throat after CT w contrast (Hx of IV con allergy). Pt pre-tx w benadryl. Pt without any sign of allergic reaction, no cough, wheezing, face or tongue swelling. I gave addition of 80mg IV solumedrol. Pt having some cont'd intermittent stomach cramping. Well appearing w normal VS at DC. Discussed tx for colitis and f/u w PCP in 3 days, ER sooner if worse. (VICKY GALVIN DO) Diagnostic Imaging Diagonstic Imaging: CT Plain Films/CT/US/NM/MRI: abdomen, pelvis (AURELIA RANDHAWA MD) Comments EXAMINATION: CT abdomen and pelvis with contrast 10/20/2019. COMPARISON: 10/16/2018 FINDINGS: There is fatty infiltration within the liver which is otherwise unremarkable. There is evidence of previous cholecystectomy. The spleen is unremarkable. The adrenal glands and pancreas normal. Kidneys unremarkable. There is fat stranding adjacent to the proximal descending colon and splenic flexure. A few diverticuli in the region are noted and findings likely due to focal diverticulitis. Colitis not excluded. The remaining colon unremarkable. There is no free fluid, free air or abscess. Appendix unremarkable. Lung bases unremarkable. No acute osseous abnormality. IMPRESSION: 1. Fat stranding about the proximal descending colon and splenic flexure with one or two diverticuli question the region suggesting diverticulitis, although colitis is not excluded. Other incidental findings as above. Dictated on workstation # [id number] Dict: 10/20/19 0629 Trans: 10/20/19 0640 [id number] Interpreted by: JANIE MALDONADO MD Electronically signed by: (VICKY GALVIN DO) Transfer of Care Time: 06:00 Care transferred to: Dr. Galvin (AURELIA RANDHAWA MD) Departure Impression Primary Impression: Colitis Additional Impression: Diffuse abdominal pain Disposition: 01 HOME, SELF-CARE Condition: Improved Departure-Patient Inst. Decision time for Depature: 06:53 (VICKY GALVIN DO) Referrals: EVELIA DAVIES (PCP/Family) Primary Care Physician Patient Instructions: Colitis (DC) Add. Discharge Instructions: Follow up with your Primary Care doctor in 3 days for re-evaluation All discharge instructions reviewed with patient and/or family. Voiced understanding. Scripts Ondansetron (Ondansetron Odt) 4 Mg Tab.rapdis 4 MG PO TID for Nausea, #10 TAB Prov: VICKY GALVIN DO 10/20/19 Hyoscyamine Sulfate (Levsin-Sl) 0.125 Mg Tab.subl 0.125 MG SL Q4H PRN for CRAMPS, #12 TAB 0 Refills Prov: VICKY GALVIN DO 10/20/19 Metronidazole (Flagyl) 500 Mg Tablet 500 MG PO BID, #14 TAB Prov: VICKY GALVIN DO 10/20/19 Ciprofloxacin HCl (Cipro) 500 Mg Tablet 500 MG PO BID for 7 Days, #14 TAB Prov: VICKY GALVIN DO 10/20/19 AURELIA RANDHAWA MD Oct 20, 2019 05:07 VICKY GALVIN DO Oct 20, 2019 06:56
[2019-10-20 05:19] LABS: BASOPHILS # (AUTO) 0.1 10^3/uL (0.0-0.1); BASOPHILS % (AUTO) 1 % (0-10); EOSINOPHILS # (AUTO) 0.3 10^3/uL (0.0-0.3); EOSINOPHILS % (AUTO) 3 % (0-10); HEMATOCRIT 44 % (35-52); HEMOGLOBIN 14.7 G/DL (11.5-16.0); LYMPHOCYTES # (AUTO) 3.4 X 10^3 (1.0-4.0); LYMPHOCYTES % (AUTO) 31 % (12-44); MEAN CORPUSCULAR HEMOGLOBIN 28 PG (25-34); MEAN CORPUSCULAR HGB CONC 33 G/DL (32-36); MEAN CORPUSCULAR VOLUME 86 FL (80-99); MEAN PLATELET VOLUME 11.8 FL (7.4-10.4); MONOCYTES # (AUTO) 0.7 X 10^3 (0.0-1.0); MONOCYTES % (AUTO) 7 % (0-12); NEUTROPHILS # (AUTO) 6.4 X 10^3 (1.8-7.8); NEUTROPHILS % (AUTO) 59 % (42-75); PLATELET COUNT 154 10^3/uL (130-400); RED CELL DISTRIBUTION WIDTH 13.3 % (10.0-14.5); WHITE BLOOD COUNT 10.9 10^3/uL (4.3-11.0)
[2019-10-20 05:20] LABS: BACTERIA,URINE TRACE /HPF; BILIRUBIN,URINE NEGATIVE (NEGATIVE); CLARITY,URINE CLEAR; COLOR,URINE YELLOW; GLUCOSE, URINE (UA) 3+ (NEGATIVE); KETONES,URINE NEGATIVE (NEGATIVE); LEUKOCYTE ESTERASE ,URINE NEGATIVE (NEGATIVE); NITRITE,URINE NEGATIVE (NEGATIVE); PROTEIN,URINE NEGATIVE (NEGATIVE)
[2019-10-20 05:31] LABS: ALANINE AMINOTRANSFERASE 40 U/L (0-55); ALBUMIN 3.9 GM/DL (3.2-4.5); ALKALINE PHOSPHATASE 129 U/L (40-136); BILIRUBIN,TOTAL 0.5 MG/DL (0.1-1.0); BUN/CREATININE RATIO 16; CALCIUM 9.5 MG/DL (8.5-10.1); CARBON DIOXIDE 24 MMOL/L (21-32); CHLORIDE 102 MMOL/L (98-107); CREATININE SERUM 0.79 MG/DL (0.60-1.30); GFR ESTIMATED > 60; GLUCOSE 108 MG/DL (70-105); POTASSIUM 3.5 MMOL/L (3.6-5.0); SODIUM 140 MMOL/L (135-145); TOTAL PROTEIN 7.3 GM/DL (6.4-8.2)
[2019-10-20 05:32] LABS: LIPASE 26 U/L (8-78)
[2019-10-20] MEDS ORDERED: methylPREDNISolone 125 MG (Solu-MEDROL) VIAL IVP ONE (06:30)
--- NOTE | 2019-10-20 06:41 | Diagnostic Imaging Report ---
PROCEDURE: CT abdomen and pelvis with contrast. TECHNIQUE: Multiple contiguous axial images were obtained through the abdomen and pelvis after administration of intravenous contrast. Auto Exposure Controls were utilized during the CT exam to meet ALARA standards for radiation dose reduction. INDICATION: Nausea and diarrhea. Low pelvic pain, left flank pain. Prior history of tubal ligation, hysterectomy, cholecystectomy and as well as prior kidney stones. EXAMINATION: CT abdomen and pelvis with contrast 10/20/2019. COMPARISON: 10/16/2018 FINDINGS: There is fatty infiltration within the liver which is otherwise unremarkable. There is evidence of previous cholecystectomy. The spleen is unremarkable. The adrenal glands and pancreas normal. Kidneys unremarkable. There is fat stranding adjacent to the proximal descending colon and splenic flexure. A few diverticuli in the region are noted and findings likely due to focal diverticulitis. Colitis not excluded. The remaining colon unremarkable. There is no free fluid, free air or abscess. Appendix unremarkable. Lung bases unremarkable. No acute osseous abnormality. IMPRESSION: 1. Fat stranding about the proximal descending colon and splenic flexure with one or two diverticuli question the region suggesting diverticulitis, although colitis is not excluded. Other incidental findings as above. Dictated by: Dictated on workstation # [id number]
[2019-10-20] MEDS ORDERED: HYOS0.1283 SL (06:55)
[2019-10-20] MEDS ORDERED: ONDA4TAB11 PO (06:55)
[2019-10-20] MEDS ORDERED: CIPR-225 PO (06:55)
[2019-10-20] MEDS ORDERED: METR500T PO (06:55)
[2019-10-20 07:25] VITALS: BP 104/43
== END 2019-10-20 07:25 | disposition home or self-care (01) ==
LOC: EDUNIT# 04:31 → ER FS 04:33
DX: K52.9 Noninfective gastroenteritis and colitis, unspecified (principal); R10.84 Generalized abdominal pain; E66.9 Obesity, unspecified; Z68.41 Body mass index [BMI] 40.0-44.9, adult; Z88.0 Allergy status to penicillin; Z88.6 Allergy status to analgesic agent; Z91.041 Radiographic dye allergy status
CPT/HCPCS: 36415; 74177; 80053; 81000; 83605; 83690; 85025

== ENCOUNTER 2022-05-07 22:31 | Emergency (ER) | payer MEDICAID ==
[~2022-05-07 22:31] MED LIST changes: +CIPR-225 PO; +HYOS0.1283 SL; +METR500T PO; +ONDA4TAB11 PO
[2022-05-07] MEDS ORDERED: oxyCODONE/APAP 5/325MG (PERCOCET 5) TABLET PO ONE (22:45)
[2022-05-07] MEDS ORDERED: CYCLOBENZAPRINE 10 MG (FLEXERIL) TAB PO SCH (22:45)
--- NOTE | 2022-05-07 22:55 | ED General ---
General Chief Complaint: General Problems/Pain Stated Complaint: R HIP,LOWER BACK PAIN, R LEG SWELLING Nursing Triage Note: Pt complaining of right lower back pain that radiates to her right hip/groin. Pt states the pain started yesterday Source of Information: Patient Exam Limitations: No Limitations History of Present Illness Date Seen by Provider: May 07, 2022 Time Seen by Provider: 22:30 Initial Comments Patient is a 46-year-old female with history of chronic back pain who presents with acute exacerbation of back pain starting last night. Patient was lifting her 25 pound grandchild when she felt a sudden onset sharp lower back pain radiating to her right groin. Pain is described as sharp worse with palpation leg movement and ambulation. Pain is moderate to severe with limited response to hydrocodone and ibuprofen which was taken earlier today. Patient also reports seven-point weight gain with right leg swelling. No chest pain palp itation shortness of breath. No cellulitis fever chills or sweats. No history of congestive heart failure. No other acute symptoms or complaints. Previous hysterectomy. Timing/Duration: 12-24 Hours Severity: Moderate Modifying Factors: improves with Movement Associated Systoms: Other Allergies and Home Medications Allergies Coded Allergies: Penicillins (Verified Allergy, Unknown, 07/31/18) ketorolac (Verified Allergy, Unknown, 07/31/18) Uncoded Allergies: IV CONTRAST DYE (Allergy, Unknown, 07/31/18) Patient Home Medication List Home Medication List Reviewed: Yes Ciprofloxacin HCl (Cipro) 500 Mg Tablet, 500 MG PO BID Prescribed by: VICKY YUAN on 10/20/19 0655 Docusate Sodium (Docusate Sodium) 100 Mg Tablet, 100 MG PO BID Prescribed by: XAVIER CERON on 10/16/18 0349 Hydromorphone HCl (Dilaudid) 2 Mg Tablet, 2 MG PO TID PRN for PAIN-SEVERE Prescribed by: AURELIA RANDHAWA on 07/31/18 2225 Hyoscyamine Sulfate (Levsin-Sl) 0.125 Mg Tab.subl, 0.125 MG SL Q4H PRN for CRAMPS Prescribed by: VICKY YUAN on 10/20/19 0655 Metronidazole (Flagyl) 500 Mg Tablet, 500 MG PO BID Prescribed by: VICKY YUAN on 10/20/19 0655 Ondansetron (Ondansetron Odt) 4 Mg Tab.rapdis, 4 MG PO TID Prescribed by: VICKY YUAN on 10/20/19 0655 Polyethylene Glycol 3350 (Miralax) 17 Gm Powd.pack, 17 GM PO BID Prescribed by: XAVIER CERON on 10/16/18 0349 Promethazine HCl (Promethazine Tablet) 25 Mg Tablet, 25 MG PO Q6H PRN for NAUSEA/VOMITING Prescribed by: AURELIA RANDHAWA on 07/31/18 1957 Review of Systems Review of Systems Constitutional: see HPI EENTM: see HPI Respiratory: see HPI Cardiovascular: see HPI Gastrointestinal: see HPI Genitourinary: see HPI : No Musculoskeletal: see HPI Skin: see HPI Psychiatric/Neurological: See HPI Hematologic/Lymphatic: See HPI All Other Systems Reviewed Negative Unless Noted: No Past Ywtbara-Xdnjeu-Lrjhwk Hx Patient Social History Tobacco Use?: No Use of E-Cig and/or Vaping dev: No Substance use?: No Alcohol Use?: No Pt feels they are or have been: No Seasonal Allergies Seasonal Allergies: No Past Medical History Surgeries: Yes Abdominal, Section, Gallbladder, Hysterectomy, Tubal Ligation Respiratory: No Cardiac: No 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 oz. 117.374797qt; 41.00 BMI Method:Stated General Appearance: Moderate Distress Eyes: Bilateral Eye Normal Inspection, Bilateral Eye PERRL, Bilateral Eye EOMI HEENT: PERRL/EOMI, Normal ENT Inspection Respiratory: Chest Non Tender, Lungs Clear Cardiovascular: Regular Rate, Rhythm, No Edema Back: No CVA Tenderness, Decreased Range of Motion, Other (Right lower lumbar paravertebral back pain/tenderness) Extremity: Swelling (Right leg swelling) Neurologic/Psychiatric: Alert, Oriented x3, No Motor/Sensory Deficits Focused Exam Sepsis Stage: Ruled Out Progress/Results/Core Measures Suspected Sepsis SIRS Temperature: Pulse: 100 Respiratory Rate: 18 Laboratory Tests 05/07/22 23:00: White Blood Count 5.0 Blood Pressure 181 /99 Mean: 126 Laboratory Tests 05/07/22 23:00: Creatinine 0.59L, Platelet Count 112L, Total Bilirubin 0.6 Results/Orders Lab Results Laboratory Tests Test 05/07/22 23:00 Range/Units White Blood Count 5.0 4.3-11.0 10^3/uL Red Blood Count 4.67 3.80-5.11 10^6/uL Hemoglobin 13.4 11.5-16.0 g/dL Hematocrit 41 35-52 % Mean Corpuscular Volume 88 80-99 fL Mean Corpuscular Hemoglobin 29 25-34 pg Mean Corpuscular Hemoglobin Concent 33 32-36 g/dL Red Cell Distribution Width 13.7 10.0-14.5 % Platelet Count 112 L 130-400 10^3/uL Mean Platelet Volume 11.1 9.0-12.2 fL Immature Granulocyte % (Auto) 0 % Neutrophils (%) (Auto) 67 42-75 % Lymphocytes (%) (Auto) 22 12-44 % Monocytes (%) (Auto) 8 0-12 % Eosinophils (%) (Auto) 2 0-10 % Basophils (%) (Auto) 1 0-10 % Neutrophils # (Auto) 3.3 1.8-7.8 10^3/uL Lymphocytes # (Auto) 1.1 1.0-4.0 10^3/uL Monocytes # (Auto) 0.4 0.0-1.0 10^3/uL Eosinophils # (Auto) 0.1 0.0-0.3 10^3/uL Basophils # (Auto) 0.1 0.0-0.1 10^3/uL Immature Granulocyte # (Auto) 0.0 0.0-0.1 10^3/uL Percent Immature Platelet Fraction 4.8 0.0-7.6 % D-Dimer 0.83 H 0.00-0.49 UG/ML Sodium Level 141 135-145 MMOL/L Potassium Level 3.9 3.6-5.0 MMOL/L Chloride Level 107 98-107 MMOL/L Carbon Dioxide Level 25 21-32 MMOL/L Anion Gap 9 5-14 MMOL/L Blood Urea Nitrogen 19 H 7-18 MG/DL Creatinine 0.59 L 0.60-1.30 MG/DL Estimat Glomerular Filtration Rate 114 BUN/Creatinine Ratio 32 Glucose Level 107 H 70-105 MG/DL Calcium Level 8.7 8.5-10.1 MG/DL Corrected Calcium 9.2 8.5-10.1 MG/DL Total Bilirubin 0.6 0.1-1.0 MG/DL Aspartate Amino Transf (AST/SGOT) 39 H 5-34 U/L Alanine Aminotransferase (ALT/SGPT) 56 H 0-55 U/L Alkaline Phosphatase 159 H 40-136 U/L Pro-B-Type Natriuretic Peptide 74.0 <125.0 PG/ML Total Protein 6.5 6.4-8.2 GM/DL Albumin 3.4 3.2-4.5 GM/DL Smear Scan PLT EST. DECREASED My Orders Orders - OSORIO ARTEAGA DO Oxycodone/Apap 5/325mg Tablet (Percocet (05/07/22 22:45) Cyclobenzaprine Tablet (Flexeril Tablet) (05/07/22 22:45) Cbc With Automated Diff (05/07/22 22:42) Comprehensive Metabolic Panel (05/07/22 22:42) Probnp Fs (05/07/22 22:42) Fibrin Degradation Products (05/07/22 22:42) Enoxaparin Injection (Lovenox Injection) (05/08/22 00:00) Medications Given in ED Current Medications Medications Dose Ordered Sig/Karl Route Start Time Stop Time Status Last Admin Dose Admin Oxycodone/ Acetaminophen 2 tab ONCE ONCE PO 05/07/22 22:45 05/07/22 22:49 DC 05/07/22 22:54 2 TAB Vital Signs/I&O 05/07/22 22:34 Temp 36.6 Pulse 100 Resp 18 B/P (MAP) 181/99 (126) Pulse Ox 98 O2 Delivery Room Air Capillary Refill : Less Than 3 Seconds Blood Pressure Mean: 126 Departure Communication (Admissions) Right leg pain and swelling concern for DVT. D-dimer positive. No chest pain palpitation shortness of breath. Single dose of Lovenox given. Outpatient ultrasound ordered for a.m. Patient given preliminary return precautions should she develop chest pain palpitations or shortness of breath in the interim. Musculoskeletal back pain with radiculopathy reproduces on exam. Pain improved with treatment. Recommendations for supportive care with PCP follow-up. Return precautions reviewed. Patient verbalizes understanding and agreement with all discharge instructions prior to departure. Impression Primary Impression: Lumbar radiculopathy, acute Additional Impression: Back pain Disposition: 01 HOME, SELF-CARE Condition: Stable Departure-Patient Inst. Decision time for Depature: 23:58 Referrals: BROOKLYN KU (PCP) Primary Care Physician ORA DUNN APRN (Family) Primary Care Physician Patient Instructions: Low Back Pain ED, Radiculopathy (DC) Add. Discharge Instructions: You were evaluated in the emergency department for low back pain and right leg swelling. Your exam is consistent with musculoskeletal back pain, and possible blood clot involving your right leg. Please take newly prescribed medications as directed avoid heavy lifting and follow-up with your PCP tomorrow morning to schedule an ultrasound of your right leg the . If you have difficulty scheduling ultrasound, please contact the senior scheduler at [facility] to arrange for outpatient ultrasound for tomorrow. In the meantime if you develop new or concerning symptoms, return to the emergency department. All discharge instructions reviewed with patient and/or family. Voiced understanding. Scripts Cyclobenzaprine HCl (Cyclobenzaprine HCl) 10 Mg Tablet 10 MG PO TID, #30 TAB Prov: OSORIO ARTEAGA DO 05/08/22 Tramadol HCl (Tramadol HCl) 50 Mg Tablet 50 MG PO Q6H PRN for PAIN for 3 Days, #12 TAB 0 Refills Prov: OSORIO ARTEAGA DO 05/08/22 Methylprednisolone (Methylprednisolone Dose Pack) 4 Mg Tab.ds.pk 4 MG PO UD for 6 Days, #21 PKG PER DOSE PACK INSTRUCTIONS Prov: OSORIO ARTEAGA DO 05/08/22 OSORIO ARTEAGA DO May 07, 2022 22:55
[2022-05-07 23:14] LABS: BASOPHILS # (AUTO) 0.1 10^3/uL (0.0-0.1); BASOPHILS % (AUTO) 1 % (0-10); EOSINOPHILS # (AUTO) 0.1 10^3/uL (0.0-0.3); EOSINOPHILS % (AUTO) 2 % (0-10); HEMATOCRIT 41 % (35-52); HEMOGLOBIN 13.4 g/dL (11.5-16.0); LYMPHOCYTES # (AUTO) 1.1 10^3/uL (1.0-4.0); LYMPHOCYTES % (AUTO) 22 % (12-44); MEAN CORPUSCULAR HEMOGLOBIN 29 pg (25-34); MEAN CORPUSCULAR HGB CONC 33 g/dL (32-36); MEAN CORPUSCULAR VOLUME 88 fL (80-99); MEAN PLATELET VOLUME 11.1 fL (9.0-12.2); MONOCYTES # (AUTO) 0.4 10^3/uL (0.0-1.0); MONOCYTES % (AUTO) 8 % (0-12); NEUTROPHILS # (AUTO) 3.3 10^3/uL (1.8-7.8); NEUTROPHILS % (AUTO) 67 % (42-75); PLATELET COUNT 112 10^3/uL (130-400)
[2022-05-07 23:19] LABS: SMEAR SCAN COMMENT PLT EST. DECREASED
[2022-05-07 23:41] LABS: ALBUMIN 3.4 GM/DL (3.2-4.5); BILIRUBIN,TOTAL 0.6 MG/DL (0.1-1.0); CALCIUM 8.7 MG/DL (8.5-10.1); CREATININE SERUM 0.59 MG/DL (0.60-1.30); POTASSIUM 3.9 MMOL/L (3.6-5.0); TOTAL PROTEIN 6.5 GM/DL (6.4-8.2)
[2022-05-07 23:58] VITALS: BP 181/99
[2022-05-08] MEDS ORDERED: ENOXAPARIN 80 MG/0.8 ML (LOVENOX) SYR SC ONE
[2022-05-08] MEDS ORDERED: METH4TAB10 PO (00:03)
[2022-05-08] MEDS ORDERED: CYCL10TA25 PO (00:03)
[2022-05-08] MEDS ORDERED: TRM50T PO (00:03)
== END 2022-05-08 00:11 | disposition home or self-care (01) ==
LOC: EDUNIT# 22:31 → ER FS 22:33
DX: M54.16 Radiculopathy, lumbar region (principal); Z88.6 Allergy status to analgesic agent; Z28.310 Unvaccinated for COVID-19
CPT/HCPCS: 36415; 80053; 83880; 85025; 85379

== ENCOUNTER 2023-01-05 22:08 | Emergency (ER) | payer BC, MEDICAID ==
[~2023-01-05] VITALS: Ht 157.4 cm; Wt 98.2 kg
[~2023-01-05 22:08] MED LIST changes: +CYCL10TA25 PO; +METH4TAB10 PO; +TRM50T PO
[2023-01-05 22:11] VITALS: BP 135/96
[2023-01-05] MEDS ORDERED: FLUORESCEIN 1 MG OPHTHALMIC STRIPS ONE (22:25)
[2023-01-05] MEDS ORDERED: TETRACAINE 0.5% OPHTH SOLN 4 ML BTL (SINGLE DOSE ONLY) ONE (22:25)
[2023-01-05] MEDS ORDERED: FLUORESCEIN 1 MG OPHTHALMIC STRIPS OP ONE (22:30)
[2023-01-05] MEDS ORDERED: TETRACAINE 0.5% OPHTH SOLN 4 ML BTL (SINGLE DOSE ONLY) OP ONE (22:30)
[2023-01-05] MEDS ORDERED: RX-GENTAMICIN SULFATE 0.3% OP 5 ML BTL ONE (22:42)
[2023-01-05] MEDS ORDERED: RX-GENTAMICIN SULFATE 0.3% OP 5 ML BTL OD STA (22:43)
[2023-01-05] MEDS ORDERED: RX-ONDANSETRON 4 MG ODT (ZOFRAN) PPK #4 PO STA (22:43)
--- NOTE | 2023-01-05 22:48 | ED EENT ---
History of Present Illness General Chief Complaint: Eye Problems Stated Complaint: RIGHT EYE|HEAD PAIN Nursing Triage Note: Patient states that she began having pain in her right eye this morning. The patients eye had progressively gotten worse throughout the day. Patient has redness, pain, and tearing. Source: patient, RN notes reviewed Exam Limitations: no limitations History of Present Illness Date Seen by Provider: Jan 05, 2023 Time Seen by Provider: 22:22 Initial Comments 47-year-old female patient complaining of right eye pain and redness since this morning that gradually getting worse and had pus drainage and tearing and photophobia and foreign body sensation without history of injury. Patient complaining of headache and nausea after starting care eye pain but stated she has history of migraine headache also. Patient complaining of blurred vision. Patient denies recent URI and sick contact. Allergies and Home Medications Allergies Coded Allergies: Penicillins (Verified Allergy, Unknown, 07/31/18) ketorolac (Verified Allergy, Unknown, 07/31/18) Uncoded Allergies: IV CONTRAST DYE (Allergy, Unknown, 07/31/18) Patient Home Medication List Home Medication List Reviewed: Yes Ciprofloxacin HCl (Cipro) 500 Mg Tablet, 500 MG PO BID Prescribed by: VICKY YUAN on 10/20/19654 Cyclobenzaprine HCl (Cyclobenzaprine HCl) 10 Mg Tablet, 10 MG PO TID Prescribed by: OSORIO ARTEAGA on 05/08/222 Docusate Sodium (Docusate Sodium) 100 Mg Tablet, 100 MG PO BID Prescribed by: XAVIER CERON on 10/16/18 0349 Hydromorphone HCl (Dilaudid) 2 Mg Tablet, 2 MG PO TID PRN for PAIN-SEVERE Prescribed by: AURELIA RANDHAWA on 07/31/182224 Hyoscyamine Sulfate (Levsin-Sl) 0.125 Mg Tab.subl, 0.125 MG SL Q4H PRN for CRAMPS Prescribed by: VICKY YUAN on 10/20/19654 Methylprednisolone (Methylprednisolone Dose Pack) 4 Mg Tab.ds.pk, 4 MG PO UD Prescribed by: OSORIO ARTEAGA on 05/08/222 Metronidazole (Flagyl) 500 Mg Tablet, 500 MG PO BID Prescribed by: VICKY YUAN on 10/20/19654 Ondansetron (Ondansetron Odt) 4 Mg Tab.rapdis, 4 MG PO TID Prescribed by: VICKY YUAN on 10/20/19 0655 Polyethylene Glycol 3350 (Miralax) 17 Gm Powd.pack, 17 GM PO BID Prescribed by: XAVIER CERON on 10/16/18 0349 Promethazine HCl (Promethazine Tablet) 25 Mg Tablet, 25 MG PO Q6H PRN for NAUSEA/VOMITING Prescribed by: AURELIA RANDHAWA on 07/31/18 2225 Tramadol HCl (Tramadol HCl) 50 Mg Tablet, 50 MG PO Q6H PRN for PAIN Prescribed by: OSORIO ARTEAGA on 05/08/22 0003 Review of Systems Review of Systems Constitutional: no symptoms reported Eyes: See HPI Ears: No Symptoms Reported Nose: no symptoms reported Mouth: no symptoms reported Respiratory: no symptoms reported Cardiovascular: no symptoms reported Gastrointestinal: see HPI Musculoskeletal: no symptoms reported Skin: no symptoms reported Neurological: See HPI Hematologic/Lymphatic: No Symptoms Reported Immunological/Allergic: no symptoms reported All Other Systems Reviewed Negative Unless Noted: Yes Past Zezyyqo-Fmwosr-Przxyo Hx Patient Social History Tobacco Use?: No Substance use?: No Alcohol Use?: No Pt feels they are or have been: No Seasonal Allergies Seasonal Allergies: No Past Medical History Surgeries: Yes Abdominal, Section, Gallbladder, Hysterectomy, Tubal Ligation Respiratory: No Cardiac: No 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 oz. 117.545451tu; 39.00 BMI Method:Stated General Appearance: moderate distress Eyes: right eye conjunctival inflammation, right eye lid inflammation; left eye normal inspection; bilateral eye EOMI Ears: bilateral ear auricle normal Nose: normal inspection Mouth/Throat: normal mouth inspection Neck: non-tender Cardiovascular: normal peripheral pulses, regular rate, rhythm, no edema, no gallop Respiratory: chest non-tender, lungs clear, normal breath sounds, no respiratory distress Neurologic/Psychiatric: no motor/sensory deficits, alert, oriented x 3 Skin: normal color, warm/dry Progress/Results/Core Measures Results/Orders My Orders Orders - CHERELLE JOSEPH MD Tetracaine 0.5% Ophth Imani Sdv (Tetracai (01/05/23 22:30) Fluorescein Ophthalmic Strips (Fluoresce (01/05/23 22:30) Fluorescein Ophthalmic Strips (Fluoresce (01/05/23 22:25) Tetracaine 0.5% Ophth Imani Sdv (Tetracai (01/05/23 22:25) Rx-Gentamicin Ophth Soln (Rx-Gentamicin (01/05/23 22:42) Rx-Gentamicin Ophth Soln (Rx-Gentamicin (01/05/23 22:43) Rx-Ondansetron Po (Rx-Zofran Po) (01/05/23 22:43) Rx-Hydrocodone/Apap 5-325 Mg (Rx-Vicodin (01/05/23 22:45) Medications Given in ED Current Medications Medications Dose Ordered Sig/Karl Route Start Time Stop Time Status Last Admin Dose Admin Acetaminophen/ Hydrocodone Bitart 1 ea Q6H PRN PO 01/05/23 22:45 01/05/23 22:52 1 EA Fluorescein Sodium ONCE ONCE OP 01/05/23 22:30 01/05/23 22:31 DC 01/05/23 22:28 1 MG Tetracaine HCl 1 OR 2 DROPS INTO AFFEC... ONCE ONCE OP 01/05/23 22:30 01/05/23 22:31 DC 01/05/23 22:28 1 ML Vital Signs/I&O 01/05/23 22:11 Temp 36.6 Pulse 88 Resp 18 B/P (MAP) 135/96 (109) Pulse Ox 99 O2 Delivery Room Air Blood Pressure Mean: 109 Progress Progress Note : Progress Note Differential diagnosis: Acute conjunctivitis, corneal abrasion, glaucoma. Patient with complaining of right eye erythema pain and discharge since this morning without known injury. Patient complaining of nausea and headache but has history of migraine headache. No tonometer was available to check the pressure of the eye. Visual acuity was 20/30 in left eye and 20/25 in the right eye and bilateral was 20/15. Fluorescein test was negative. [place] and Zofran was dispensed and I gentamicin solution was a started in ER and remaining of the medication was dispensed and patient advised to apply the drop in right eye every 4 hours for the next 7 days and follow-up with customer contact specialist in 1 or 2 days for taking the pressure of right eye and reevaluation. Departure Impression Primary Impression: Acute conjunctivitis, right eye Qualified Codes: H10.31 - Unspecified acute conjunctivitis, right eye Disposition: 01 HOME, SELF-CARE Condition: Improved Departure-Patient Inst. Decision time for Depature: 22:56 Referrals: BROOKLYN KU (PCP) Primary Care Physician ORA DUNN APRN (Family) Primary Care Physician Patient Instructions: Conjunctivitis ([facility]) ED Add. Discharge Instructions: Take dispensed hydrocodone every 4-6 hours as needed for pain Take dispense Zofran every 4-6 hours as needed for nausea Take dispense eyedrop gentamicin every 4 hours for the next 7 days Follow-up with customer contact specialist in 1 or 2 days for recheck and checking the pressure of the eye Return to ER as needed All discharge instructions reviewed with patient and/or family. Voiced understanding. Work/School Note: Work Release Form Date Seen in the Emergency Department: Jan 05, 2023 Return to Work: Jan 08, 2023 CHERELLE JOSEPH MD Jan 05, 2023 22:48
== END 2023-01-05 23:03 | disposition home or self-care (01) ==
LOC: EDUNIT# 22:08 → ER FS 22:10
DX: H10.31 Unspecified acute conjunctivitis, right eye (principal); Z86.69 Personal history of other diseases of the nervous system and sense organs
CPT/HCPCS: 99281